=== PATIENT | male | born 1960 | race Caucasian/White ===

== ENCOUNTER 2020-09-17 09:17 | Day surgery (SDC) | payer BC ==
[~2020-09-17] VITALS: Ht 185.4 cm; Wt 81.6 kg
--- NOTE | ~2020-09-17 | O ---
[facility] [place] [address] OPERATIVE REPORT Name: CAT RICHARDS Room #: DEP [facility].#: [id number] Admission: 09/17/20 Attend Phys: Leandro Villagran MD Discharge: 09/17/20 Date of : 58 Report #: [id number] THIS REPORT FOR: cc: Physician not on staff Physician not on staff Leandro Villagran MD ~ DATE OF SERVICE: 09/17/2020 PREOPERATIVE DIAGNOSIS: Left calcaneus fracture. POSTOPERATIVE DIAGNOSIS: Left calcaneus fracture. PROCEDURE: Left calcaneal open reduction internal fixation. SURGEON: Leandro Villagran MD MIGRATION SPECIALIST: None. ANESTHESIA: General. ESTIMATED BLOOD LOSS: Minimal. DRAINS: No drains. TOURNIQUET TIME: 90 minutes. DESCRIPTION OF PROCEDURE: The patient was brought to the operating room where he was placed under general anesthesia. Once under adequate general anesthesia, the patient's left lower extremity was prepped and draped in a sterile manner. The extremity was elevated, exsanguinated, and a tourniquet placed to 300 mmHg. A 6 cm incision overlying the sinus tarsi was made. This was dissected down through the soft tissue to the extensor digitorum brevis. This was then incised and elevated exposing the fracture site. The patient had a highly comminuted fracture of the calcaneus. The anterior fracture was provisionally reduced with a K-wire and a lamina crayon sorting machine feeder was placed between the talus and the calcaneus, thus exposing the sinus tarsi and the posterior subtalar facet. The multiple fracture fragments of the posterior subtalar facet were then identified. This was a 3-part fracture. These pieces were then elevated from the surrounding bone and the plantar calcaneus with a Little Joker elevator. Provisional fixation across the middle to medial portions of the fracture site were achieved with a K-wire. This was cut short within the joint. The lateral fragment was then freed from the surrounding soft tissues well and reduced to the medial 2 pieces. This was then fixed with a 4.5 cannulated headless screw to the medial fragments. Reduction then of the anterior to the posterior aspect of the calcaneus was achieved with a [employer] calcaneal lateral plate. Reduction was achieved along with a bone reduction tenaculum from medial to lateral [address] [address] OPERATIVE REPORT Name: CAT RICHARDS [place] Room #: DEP [facility]..#: [id number] Admission: 09/17/20 Attend Phys: Leandro Villagran MD Discharge: 09/17/20 Date of : 58 Report #: [id number] compressing across the plate and diminishing the calcaneal. Multiple fixation points were then placed proximal and distal to the angle of [place] with fixation in the anterior fracture fragments as well the subchondral bone of the posterior facet. A large 6.5 mm headless screw was then placed from the posterior calcaneus across to the anterior calcaneus for further stability there, bringing it out of varus in the meantime as well. Excellent fixation and satisfactory alignment was achieved. Once complete, the wounds were irrigated copiously and closed with 0-Vicryl in the deep fascia, 2-0 Vicryl in subcutaneous tissues and stone were used for the skin. The wounds were dressed with Xeroform, 4 x 4's, and a sterile soft compressive dressing was placed along with a posterior splint. Tourniquet was let down at 90 minutes. Toes were pink and warm with good capillary refill. There were no complications from the procedure. The patient tolerated the procedure well and was sent to the recovery room without incident. By: [id number] Leandro Villagran MD /nt
[~2020-09-17 09:17] MED LIST: KRILL OIL 5001 EAC1 PO; NUTRITIONAL YEAST PO; PERCOCET 10-321 EACH PO; VITAMIN D350 MC3 PO; ZINC50 M2 PO
[2020-09-17 11:24] VITALS: BP 139/75
[2020-09-17] MEDS ORDERED: ASA81BEC PO (13:52)
[2020-09-17] MEDS ORDERED: PERCOCET 7.5-31 EAC1 PO (13:52)
[2020-09-17 14:35] VITALS: BP 139/75
== END 2020-09-17 14:54 | disposition home or self-care (01) ==
LOC: TBA 09:17 → OR 09:17 → TBA 09:29 → OR 11:48
PROVIDERS: ATTEND Orthopaedic Surgery Foot and Ankle Surgery
DX: S92.062A Displaced intraarticular fracture of left calcaneus, initial encounter for closed fracture (principal); M25.572 Pain in left ankle and joints of left foot; K21.9 Gastro-esophageal reflux disease without esophagitis; Z98.890 Other specified postprocedural states; Z79.899 Other long term (current) drug therapy; Z85.528 Personal history of other malignant neoplasm of kidney; Z90.5 Acquired absence of kidney; Z87.891 Personal history of nicotine dependence; Z91.041 Radiographic dye allergy status; Z88.8 Allergy status to other drugs, medicaments and biological substances; X58.XXXA Exposure to other specified factors, initial encounter; Y93.89 Activity, other specified; Y92.89 Other specified places as the place of occurrence of the external cause; Y99.8 Other external cause status
CPT/HCPCS: 50010; 50101; 50386; 51275; 51412; 56524; 57091; 57180; 62110; 62900; 64043; 65060; 70005